=== PATIENT | female | born 2000 | race Caucasian/White ===

== ENCOUNTER → 2020-08-29 | Outpatient (CLI) | payer OTHER ==
[~2020-08-29] MED LIST: NOHOMEMEDICATIONS
== END ==
LOC: M.NUC 07-20 15:19
PROVIDERS: ATTEND Family Medicine
DX: R10.13 Epigastric pain (principal)

== ENCOUNTER → 2021-01-04 | Outpatient (CLI) | payer OTHER | LOC: M.ULTRA 10:24 | PROVIDERS: ATTEND Internal Medicine Gastroenterology | DX: R10.9 Unspecified abdominal pain (principal) ==

== ENCOUNTER → 2021-01-22 | Outpatient (CLI) | payer OTHER | LOC: M.NUC 01-19 07:45 | PROVIDERS: ATTEND Internal Medicine Gastroenterology | DX: R10.9 Unspecified abdominal pain (principal); R11.0 Nausea ==

== ENCOUNTER → 2021-03-02 | Outpatient (CLI) | payer OTHER | LOC: M.LAB 09:55 | PROVIDERS: ATTEND Surgery | DX: Z01.812 Encounter for preprocedural laboratory examination (principal); Z20.822 Contact with and (suspected) exposure to COVID-19 ==